=== PATIENT | female | born 1980 | race Caucasian/White ===

== ENCOUNTER 2021-02-02 14:56 | Emergency (ER) | payer SELFPAY ==
[~2021-02-02] VITALS: Ht 157.5 cm; Wt 77.1 kg
[2021-02-02 15:07] VITALS: BP 137/71
[2021-02-02] MEDS ORDERED: ACYCLOVIR 200 MG CAP PO ONE (15:15)
[2021-02-02] MEDS ORDERED: predniSONE 20 MG TAB PO ONE (15:15)
--- NOTE | 2021-02-02 15:28 | NUR ---
Patient ambulated to bed 07 with steady/even gait.
[2021-02-02] MEDS ORDERED: NAPR-1003 PO (15:34)
[2021-02-02] MEDS ORDERED: ACYC400T14 PO (15:34)
[2021-02-02] MEDS ORDERED: PRED10TA5 PO (15:34)
--- NOTE | 2021-02-02 15:35 | NUR ---
40 y/o F BIB daughter with c/c left sided numbness and facial droop since 8AM this morning. Patient A&Ox4, ambulatory, states pain x 3 days, rates pain 9/10, aching/constant, non-radiating pain. Patient denies any medications prior to arrival. 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 Patient denies any slurred speech, dizziness, N/V/D, blurry vision, unsteady gait. Bed locked in lowest position, side rails x 1, call light in reach. PMH/Sx/Meds: Denies NKA
[2021-02-02 16:00] VITALS: BP 137/71
--- NOTE | 2021-02-02 16:00 | NUR ---
Patient discharged with v/s stable. Written and verbal after care instructions given and explained. Patient alert, oriented and verbalized understanding of instructions. Ambulatory with steady gait. All questions addressed prior to discharge. ID band removed. Patient advised to follow up with PMD. Rx of Acyclovir, Naproxen, Prednisone given. Patient educated on indication of medication including possible reaction and side effects. Opportunity to ask questions provided and answered.
== END 2021-02-02 16:00 | disposition home or self-care (01) ==
LOC: MED 14:56
DX: G51.0 Bell's palsy (principal); Z79.899 Other long term (current) drug therapy
CPT/HCPCS: 99283; J7512

== ENCOUNTER 2021-10-10 23:20 | Emergency (ER) | payer SELFPAY ==
[~2021-10-10] VITALS: Ht 157.5 cm; Wt 79.4 kg
[~2021-10-10 23:20] MED LIST: ACYC400T14 PO; NAPR-1003 PO; PRED10TA5 PO
[2021-10-10 23:36] VITALS: BP 150/84
--- NOTE | 2021-10-10 23:42 | NUR ---
TO BED 7 FOLLOWING TRIAGE
--- NOTE | 2021-10-10 23:53 | NUR ---
Dr. Ruano examining patient.
[2021-10-10] MEDS ORDERED: FLONAS NS (23:57)
[2021-10-10] MEDS ORDERED: NAPR-54 PO (23:57)
--- NOTE | 2021-10-11 00:02 | NUR ---
Patient discharged with v/s stable. Written and verbal after care instructions given and explained. Patient alert, oriented and verbalized understanding of instructions. Ambulatory with steady gait. All questions addressed prior to discharge. ID band removed. Patient advised to follow up with PMD. Rx of FLUTICASONE PROPIONATE AND NAPROXEN given. Patient educated on indication of medication including possible reaction and side effects. Opportunity to ask questions provided and answered.
--- NOTE | 2021-10-11 00:02 | NUR ---
PT D/C BY TRINY LIND AT BEDSIDE.
--- NOTE | 2021-10-11 00:06 | NUR ---
The patient's care was reviewed and supervised by Deepthi Dowling RN.
== END 2021-10-11 00:02 | disposition home or self-care (01) ==
LOC: MED 23:20
DX: H69.82 Other specified disorders of Eustachian tube, left ear (principal); Z79.899 Other long term (current) drug therapy; Z98.890 Other specified postprocedural states
CPT/HCPCS: 99283

== ENCOUNTER 2023-12-21 22:09 | Emergency (ER) | payer OTHER ==
[~2023-12-21] VITALS: Ht 157.5 cm; Wt 90.7 kg
[~2023-12-21 22:09] MED LIST changes: +FLONAS NS; +NAPR-337 PO
[2023-12-21 22:13] VITALS: BP 152/90; PULSE 107; RESP 16; TEMP 96.7; O2SAT 100
[2023-12-21 22:28] VITALS: O2SAT 98
[2023-12-21] MEDS: IBUPROFEN 800 MG TAB PO ONE (23:47)
[2023-12-22 00:15] VITALS: BP 110/48; PULSE 82; RESP 14; O2SAT 98
== END 2023-12-22 00:15 | disposition home or self-care (01) ==
LOC: MED 22:09
DX: N63.0 Unspecified lump in unspecified breast (principal); R22.2 Localized swelling, mass and lump, trunk; Z79.899 Other long term (current) drug therapy
CPT/HCPCS: 99282